=== PATIENT | male | born 1970 | race Caucasian/White ===

== ENCOUNTER 2022-06-10 07:55 | Day surgery (SDC) | payer BC ==
[2022-06-10] MEDS ORDERED: Sodium Chloride 0.9% 1,000 ML IV SCH (08:45)
[2022-06-10] MEDS ORDERED: Propofol 200 MG/20 ML SDV ONE (08:50)
[2022-06-10] MEDS ORDERED: fentaNYL 100 MCG/2 ML SDV ONE (08:51)
[2022-06-10] MEDS ORDERED: Midazolam 1 MG/ML 2 ML SDV ONE (08:51)
== END 2022-06-10 10:55 | disposition home or self-care (01) ==
LOC: JP.SDS 07:55
PROVIDERS: ATTEND Surgery
DX: Z12.11 Encounter for screening for malignant neoplasm of colon (principal); D12.3 Benign neoplasm of transverse colon; Z80.0 Family history of malignant neoplasm of digestive organs
CPT/HCPCS: 45385; J2250; J2704; J3010; J7030; 88305

== ENCOUNTER 2024-03-21 08:27 | Day surgery (SDC) | payer BC ==
[2024-03-21] MEDS: Lactated Ringers 1,000 ML IV SCH (09:32)
[2024-03-21] MEDS ORDERED: Propofol 200 MG/20 ML SDV ONE (09:43)
[2024-03-21] MEDS ORDERED: fentaNYL 50 MCG/ML SDV ONE (09:43)
[2024-03-21] MEDS ORDERED: Midazolam 1 MG/ML 2 ML SDV ONE (09:43)
== END 2024-03-21 12:14 | disposition home or self-care (01) ==
LOC: JP.SDS 08:27
PROVIDERS: ATTEND Surgery
DX: D12.5 Benign neoplasm of sigmoid colon (principal); K64.9 Unspecified hemorrhoids
CPT/HCPCS: 45390; 45398; J2250; J2704; J3010; J7120